=== PATIENT | female | born 1990 | race Caucasian/White ===

== ENCOUNTER 2017-12-20 22:09 | Emergency (ER) | payer BC, OTHER ==
[2017-12-20] MEDS: morphine 4 MG/ML VIAL IM (22:35)
[2017-12-21] MEDS ORDERED: KETOROLAC 60 MG INJ IM (00:03)
[2017-12-21] MEDS: KETOROLAC 30 MG INJ IV (00:45)
[2017-12-21] MEDS: morphine 4 MG/ML VIAL IV ×2 (00:45→07:02)
[2017-12-21] MEDS: DIAZEPAM 5 MG/ML SYG IV (02:28)
[2017-12-21] MEDS: HYDROCODONE/APAP (5/325) TAB PO (04:33)
[2017-12-21] MEDS: ONDANSETRON 4 MG INJ IV ×2 (08:19→08:21)
[2017-12-21] MEDS: HYDROmorphONE 1 MG/ML SYG IV ×2 (08:19→08:21)
== END 2017-12-21 09:04 | disposition home or self-care (01) ==
LOC: E/R 12-21 09:04
DX: S82.042A Displaced comminuted fracture of left patella, initial encounter for closed fracture (principal); W18.39XA Other fall on same level, initial encounter; Y92.9 Unspecified place or not applicable
CPT/HCPCS: 29505; 73562; 73700; 81025; 96372; 96374; 96375; 96376; 99285-25